=== PATIENT | male | born 1985 | race Caucasian/White ===

== ENCOUNTER 2017-01-23 11:13 | Emergency (ER) | payer BC, OTHER ==
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
--- NOTE | 2017-01-23 13:18 | CT ---
EXAMINATION TYPE: CT lumbar spine wo con DATE OF EXAM: 01/23/2017 COMPARISON: CT lumbar spine May 23, 2014 HISTORY: Low back pain for 8 years increased in severity over last 2-[address] DLP: 420.3 mGycm Automated exposure control for dose reduction was used. FINDINGS: There are 5 lumbar type vertebra identified. Lumbar spine shows satisfactory alignment without eviden ce of acute fracture or dislocation. Vertebral body heights and disc space heights are fairly well-ma intained. There are stable prominent Schmorl node anterior superior L3 endplate. There are small post erior disc herniations at L4-L5 and L5-S1 levels redemonstrated on sagittal images. Bilateral pars de fects are redemonstrated. No significant spondylolisthesis is seen. Review of axial images shows a T12-L1, L1-L2, L2-L3, and L3-L4 levels all to remain within normal juarez its. Axial images at L4-L5 level shows central disc protrusion mildly effacing anterior thecal sac on axia l image 55, bilateral neural foramina are patent. No significant change from prior study is seen. Mil d facet arthropathy bilaterally is redemonstrated. Axial images at L5-S1 level show mild facet degenerative changes bilaterally. There is small central disc protrusion seen. Spinal canal is preserved and bilateral neural foramina are patent. No suspicious incidental posterior abdominal findings identified. IMPRESSION: OVERALL STABLE FINDINGS, BILATERAL PARS DEFECTS L5 LEVEL WITHOUT SPONDYLOLISTHESIS. SOME DEGENERATIVE CHANGES LOWER LUMBAR LEVELS DETAILED ABOVE. NO ACUTE FRACTURE OR DISLOCATION IS EVIDENT.
[2017-01-23 13:37] VITALS: BP 123/57; PULSE 45; RESP 16; TEMP 97.5
== END 2017-01-23 13:35 | disposition home or self-care (01) ==
LOC: EC 11:13
DX: M54.16 Radiculopathy, lumbar region (principal); Z87.891 Personal history of nicotine dependence; Z79.891 Long term (current) use of opiate analgesic; Z79.899 Other long term (current) drug therapy; Z88.8 Allergy status to other drugs, medicaments and biological substances
CPT/HCPCS: 72131; 99283

== ENCOUNTER 2018-01-05 12:04 | Emergency (ER) | payer BC, OTHER ==
[2018-01-05 12:11] VITALS: RESP 16
--- NOTE | 2018-01-05 13:37 | ED ---
General Adult HPI - General Chief complaint: Skin/Abscess/Foreign Body Stated complaint: male gu Time Seen by Provider: 01/05/18 12:55 Source: patient, RN notes reviewed Mode of arrival: ambulatory Limitations: no limitations - History of Present Illness Initial comments: Patient's 32-year-old male presented to the emergency room today with a chief complaint of a bump locally to the left side of the penile shaft that he noticed this morning. Patient states he woke up this morning to go to the bathroom and he immediately noticed that there was some swelling to the left side. Nausea. States never had this before. He states it's locally tender. He didn't know if it was possibly infected hair. He does shave that area. Patient states he did squeeze on the area was unable to get any drainage. He denies any complaints or symptoms at this time. Patient denies any recent fever , chills, shortness of breath, chest pain, back pain, abdominal pain, nausea or vomiting, numbness or tingling, dysuria or hematuria, constipation or diarrhea, headaches or visual changes, or any other complaints. - Related Data Home Medications Medication Instructions Recorded Confirmed Diazepam [Valium] 5 mg PO BID 02/23/15 01/05/18 oxyCODONE HCL 20 mg PO Q8H 05/27/16 01/05/18 Previous Rx's Medication Instructions Recorded Sulfamethox-Tmp 800-160Mg [Bactrim 1 tab PO Q12HR #20 tab 01/05/18 DS 800-160 mg] Allergies Allergy/AdvReac Type Severity Reaction Status Date / Time cortisone [Cortisone] Allergy Rash/Hives Verified 01/05/18 12:49 Review of Systems ROS Statement: Those systems with pertinent positive or pertinent negative responses have been documented in the HPI. ROS Other: All systems not noted in ROS Statement are negative. Past Medical History Past Medical History: No Reported History Additional Past Medical History / Comment(s): chronic back pain herniated discs History of Any Multi-Drug Resistant Organisms: None Reported Additional Past Surgical History / Comment(s): right leg Past Psychological History: No Psychological Hx Reported Smoking Status: Current some day smoker Past Alcohol Use History: Rare Past Drug Use History: None Reported General Exam - General Exam Comments Initial Comments: General: The patient is awake and alert, in no distress, and does not appear acutely ill. Eye: Pupils are equal, round and reactive to light, extra-ocular movements are intact. No nystagmus. There is normal conjunctiva bilaterally. No signs of icterus. Ears, nose, mouth and throat: There are moist mucous membranes and no oral lesions. Neck: The neck is supple, there is no tenderness or JVD. Musculoskeletal: Normal ROM, no tenderness. Strength 5/5. Sensation intact. Pulses equal bilaterally 2+. Neurological: A&O x 3. CN II-XII intact, There are no obvious motor or sensory deficits. Coordination appears grossly intact. Speech is normal. Skin: Patient does have area of redness and mild swelling to the left side of the penile shaft. Proximally a half centimeter in total size. Psychiatric: Cooperative, appropriate mood & affect, normal judgment. Limitations: no limitations Course Vital Signs 01/05/18 12:09 Temperature 97.5 F L Pulse Rate 53 L Respiratory 16 Rate Blood Pressure 134/80 O2 Sat by Pulse 97 Oximetry Procedures - Procedures Initial comment: Topical lidocaine was used to anesthetize the area locally. H&H needle used to make small incision. Patient tolerated procedure well. Small amount of bloody discharge was removed. Medical Decision Making - Medical Decision Making The patient will be started on antibiotics cover for infection. Advised warm compresses. Advised to follow family doctor return here to the emergency room if symptoms increase worsen. Disposition Clinical Impression: Abscess Disposition: HOME SELF-CARE Condition: Good Instructions: Abscess (ED) Additional Instructions: Please use warm compresses to the area as discussed. Please continue antibiotics. Please return to emergency room for any other concerns. Prescriptions: Sulfamethox-Tmp 800-160Mg [Bactrim DS 800-160 mg] 1 tab PO Q12HR #20 tab Is patient prescribed a controlled substance at d/c from ED?: No Referrals: Russ Fulton MD [Primary Care Provider] - 1-2 days Time of Disposition: 13:48
[2018-01-05 14:06] VITALS: BP 130/81; PULSE 45; TEMP 97.9
== END 2018-01-05 14:06 | disposition home or self-care (01) ==
LOC: EC 12:04
DX: N48.21 Abscess of corpus cavernosum and penis (principal); R11.0 Nausea; F17.200 Nicotine dependence, unspecified, uncomplicated; Z79.899 Other long term (current) drug therapy; Z88.8 Allergy status to other drugs, medicaments and biological substances
CPT/HCPCS: 10060; 99282

== ENCOUNTER → 2021-07-04 | Outpatient (CLI) | payer BC ==
--- NOTE | 2021-07-04 14:15 | XR ---
EXAM TYPE: LUMBAR SPINE X RAY SERIES COMPARISON: NONE HISTORY: 05/23/2014 TECHNIQUE: 3 views are submitted. FINDINGS: There is bilateral spondylolysis of L5 with a grade 1 anterolisthesis. Mild degenerative disc disease L4-L5. Hypertrophic spurring anteriorly at multiple levels. No compression deformities. Pedicles int act. IMPRESSION: 1. Bilateral spondylolysis L5 with minimal anterolisthesis L5 on S1. 2. Mild degenerative disc disease L4-L5.
== END | disposition home or self-care (01) ==
LOC: RADXRMAIN 13:54
PROVIDERS: ATTEND Internal Medicine
DX: M51.36 Other intervertebral disc degeneration, lumbar region (principal); M43.16 Spondylolisthesis, lumbar region
CPT/HCPCS: 72100